=== PATIENT | male | born 1960 | race Two or more races ===

== ENCOUNTER → 2023-09-11 14:47 | Outpatient (BNVA) | payer OTHER, SELFPAY | PROVIDERS: PCP Internal Medicine; Visit Provider Nurse Practitioner Family ==

== ENCOUNTER 2024-04-02 13:14 | Outpatient (AMB) | payer OTHER, SELFPAY ==
[2024-04-02 13:21] VITALS: BP 98/74; PULSE 79; O2SAT 98; BMI 26.3
--- NOTE | 2024-04-02 13:21 | MHC.OFFVIS ---
Vital Signs 04/02/24 13:21 Height 5 ft 9 in Weight 178 lb BMI 26.3 BP 98/74 Blood Pressure Location Rt brachial Pulse 79 Pulse Source Pulse Oximeter Pulse Oximetry (%) 98 Oxygen Delivery Method Room Air Intake Visit Reasons: Follow up Intake Note: Patient presents for follow up Allergies No Known Allergies Allergy (Verified 04/02/24 13:23) HPI Comments Details: 63-yr-old male presents for f/u visit of cognitive difficulties. Pt denies any significant interval medical changes. Brain MRI showed chronic left putamen hematoma. Lab work-up- unremarkable. Pt just had initial neuro-psych eval- he is being scheduled for formal neuro-psych testing. They did suggest he stop his Amitriptyline 25mg qhs- used for fibromyalgia pain, which he did. He states he was not sure it was doing anything anymore, and currently his fibromyalgia s/s are not bothering him. Previously tried Pregabalin- which he did not tolerate. Pt reports he feels his cognition is a bit better. He has word finding difficulties, word swapping. But now is trying to talk slower and be more conscious of what he wants to say. Difficulty transitioning tasks. Can lose his train of thought. Today states he is not having any difficulty paying his bills.. Does try to write reminders down- say if he is going to the store, so he does not forget something. Tremor is stable. His writing is poor. Avoids alcohol, smoking, substance use. No exercise- used to walk. But is active through projects at home and part-time work. [facility] Medical History Systolic heart failure Obstructive sleep apnea Non-ischemic cardiomyopathy Hyperlipidemia Fibromyalgia Chronic HFrEF (heart failure with reduced ejection fraction) Central sleep apnea BPH with obstruction/lower urinary tract symptoms HTN (hypertension) Anemia Social History Alcohol intake: never Patient Tobacco Use Status: Never used Tobacco Physical Exam Vital Signs: Last Vital Signs Pulse 79 04/02/24 13:21 BP 98/74 04/02/24 13:21 Pulse Ox 98 04/02/24 13:21 Oxygen Delivery Method Room Air 04/02/24 13:21 BMI result Body Mass Index 26.3 Const General: cooperative and no acute distress Orientation/consciousness: patient oriented x3 Resp Effort & Inspection: normal respiratory effort and able to speak in complete sentences Neuro Other: CN II-XII intact- with the exception of slight left upper and lower facial weakness. RUE- no visible rest or postural tremor. General: patient oriented x3 Cognition (Neuro): normal cognition Psych Appearance: grossly normal Mental Status: mental status grossly normal Speech and movement: Normal speech and movement present Affect: normal affect Attitude: cooperative Results Reviewed Results Reviewed: Result date: 02/06/2024 RESULT: MRI Brain W/O Contrast MRI Brain W/O Contrast INDICATION / CLINICAL QUESTION: Reason: UNSPEC TREMOR HX TIA; Clinical Question(s): Other: Other: TECHNIQUE: MRI of the brain was performed without contrast utilizing sagittal T1, axial T2, axial FLAIR, axial MPGR, and axial DWI sequences. COMPARISON: 05/25/2019 FINDINGS: BRAIN and EXTRA-AXIAL SPACES: The flow voids through the [place] are maintained, and there is no restricted diffusion. A chronic hematoma within the left lentiform nucleus is again noted. No new foci of abnormal susceptibility artifact. No new significant parenchymal signal abnormality. There is mild compensatory dilatation of the left lateral ventricle, but the remainder of the ventricular system is normal in size. No mass effect or extra-axial fluid collection, and the cervicomedullary junction is unremarkable. EXTRACRANIAL SOFT TISSUES: The visualized extracranial soft tissues and orbital structures are unremarkable. BONES: Unremarkable. IMPRESSION: 1. No acute or subacute infarct. 2. Chronic left putamen hematoma. No new hemorrhage. Assessment & Plan Assessment & Plan (1) Cognitive dysfunction: Code(s): F09 - Unspecified mental disorder due to known physiological condition Category: Medical (2) History of CVA (cerebrovascular accident): Comment: 2019- Proximal left M1 cut off and subtle left basal ganglia and insula Code(s): Z86.73 - Personal history of transient ischemic attack (TIA), and cerebral infarction without residual deficits Category: Medical (3) Tremor of right hand: Code(s): R25.1 - Tremor, unspecified Category: Medical Plan Reviewed brain MRI- stable known left putamen hematoma. Lab work-up- unremarkable. Comprehensive neuro-psych eval as indicated. Monitor tremor. Concur w/ stopping Amitriptyline. Monitor fibromyalgia s/s- advised if these worsen, we can consider alternate tx trials, such as duloxetine, alpha-lipoic acid. Continue regular physical, social, and cognitively stimulating activities. f/u in 6 months or sooner prn. Coding Level of Care Code Est Pt Level 4 (08509) Diagnoses Cognitive dysfunction F09 History of CVA (cerebrovascular accident) Z86.73 Tremor of right hand R25.1
== END 2024-04-02 13:49 | disposition home or self-care (01) ==
PROVIDERS: PCP Internal Medicine; Visit Provider Nurse Practitioner Family
DX: I69.318 Other symptoms and signs involving cognitive functions following cerebral infarction (principal); R25.1 Tremor, unspecified
CPT/HCPCS: 99214

== ENCOUNTER → 2024-04-02 13:14 | Outpatient (BNVA) | payer OTHER, SELFPAY | PROVIDERS: PCP Internal Medicine; Visit Provider Nurse Practitioner Family ==